=== PATIENT | female | born 1965 | race Caucasian/White ===

== ENCOUNTER 2018-06-05 09:48 | Day surgery (SDC) | payer OTHER ==
[~2018-06-05 09:48] MED LIST: CEFAZOLIN 2 GM/50 ML (PMX) 50 ML IVPB; LIDOCAINE 2% (SDV) 5 ML INJ; SOD CHLORIDE 0.9% 1,000 ML IV
[2018-06-05] MEDS ORDERED: PROPOFOL 20 ML (11:28)
[2018-06-05] MEDS ORDERED: FENTAnyl 50 MCG/ML VIAL (11:30)
[2018-06-05] MEDS ORDERED: CEFAZOLIN 1 GM INJ (11:36)
[2018-06-05] MEDS ORDERED: DEXAMETHASONE 4 MG/ML 5 ML INJ (11:36)
[2018-06-05] MEDS ORDERED: ONDANSETRON 4 MG INJ (11:37)
[2018-06-05] MEDS: BUPIVACAINE 0.25% (MPF) 30 ML INJ (11:47)
[2018-06-05] MEDS ORDERED: ATROPINE 1 MG/10 ML SYRINGE (11:54)
[2018-06-05] MEDS ORDERED: EPHEDrine 50 MG INJ (11:54)
[2018-06-05] MEDS ORDERED: LABETALOL HCL 20MG INJ (11:57)
[2018-06-05] MEDS ORDERED: SUGAMMADEX SODIUM 200 MG/2 ML VIAL IV (11:59)
[2018-06-05] MEDS ORDERED: HYDROmorphONE 1 MG/5 ML IV SYRINGE IV ×2 (12:11→12:30)
[2018-06-05] MEDS: HYDROmorphONE 1 MG/5 ML IV SYRINGE IV ×2 (12:21→12:28)
[2018-06-05] MEDS: METOCLOPRAMIDE 10 MG INJ IV (12:25)
[2018-06-05] MEDS: FENTAnyl 50 MCG/ML VIAL IV ×2 (12:25→12:32)
[2018-06-05] MEDS ORDERED: EPHEDrine SULFATE 50 MG/5 ML SYG IV (12:30)
[2018-06-05] MEDS ORDERED: hydrALAzine 20 MG INJ IV (12:30)
[2018-06-05] MEDS ORDERED: ONDANSETRON 4 MG INJ IV (12:30)
[2018-06-05] MEDS ORDERED: OXYCODONE/ACETAMINOPHEN (5/325) TAB PO ×2 (12:30)
[2018-06-05] MEDS ORDERED: ALBUTEROL 0.083% (NEB) 2.5 MG/3 ML AMP HHN (12:30)
[2018-06-05] MEDS ORDERED: MEPERIDINE 25 MG INJ IV (12:30)
[2018-06-05] MEDS ORDERED: MIDAZOLAM 1 MG/ML 2 ML INJ IV (12:30)
[2018-06-05] MEDS ORDERED: FENTAnyl 50 MCG/ML VIAL IV ×2 (12:30)
[2018-06-05] MEDS ORDERED: DIPHENHYDRAMINE 50 MG INJ IV (12:30)
[2018-06-05] MEDS ORDERED: LABETALOL HCL 20MG INJ IV (12:30)
[2018-06-05] MEDS: HYDROCODONE/APAP (5/325) TAB PO (13:27)
== END 2018-06-05 14:38 | disposition home or self-care (01) ==
LOC: SDS 09:48
DX: K80.10 Calculus of gallbladder with chronic cholecystitis without obstruction (principal)
CPT/HCPCS: 47562; 88304; 93005